=== PATIENT | male | born 1970 | race Caucasian/White ===

== ENCOUNTER → 2022-02-01 | Outpatient (CLI) | payer OTHER ==
[2022-02-01 14:51] LABS: Chol/HDL Ratio 4.71 Ratio; LDL Cholesterol,Calculated 151.7 mg/dL (0.0-131.0); VLDL Calculation 18.36 mg/dL (5.00-40.00)
== END | disposition home or self-care (01) ==
LOC: LABWHC1 10:09 → EDBD 10:09
PROVIDERS: ATTEND Family Medicine
DX: E78.2 Mixed hyperlipidemia (principal); E03.9 Hypothyroidism, unspecified
CPT/HCPCS: 36415; 80061; 84439; 84443